=== PATIENT | male | born 1980 ===

== ENCOUNTER → 2021-11-29 | Outpatient (CLI) | payer OTHER ==
--- NOTE | 2021-11-29 10:03 | RAD ---
EXAMINATION: CT of the paranasal sinuses without contrast 11/29/2021 9:06 AM HISTORY: History of sinusitis and deviation of septum TECHNIQUE: CT of the paranasal sinuses was performed using sinus protocol without contrast COMPARISON: None available FINDINGS: Review of the topogram demonstrates no abnormalities. The frontal sinuses are normal. The ethmoid si nuses are normal. There is minimal mucosal thickening involving the right maxillary sinus measuring 1 mm in maximal thickness. Left maxillary sinus is well aerated.. The sphenoid sinuses are normal. The ostiomeatal units are open bilaterally. The nasal septum is at midline. No areas of bony erosio n are identified. There is dehiscence of the medial left orbital wall which appears chronic with min imal herniation of fat. No herniation of the extraocular muscles.. Limited view of the frontal lobes is normal. IMPRESSION: Mild mucosal thickening of the right maxillary sinus. 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 Electronically signed by: Amy De Leon MD (11/29/2021 10:01 AM) [id number]
== END ==
LOC: CT 08:41
PROVIDERS: ATTEND Otolaryngology
DX: R51.9 Headache, unspecified (principal)
CPT/HCPCS: 70486